=== PATIENT | female | born 1950 | race African-American/Black ===

== ENCOUNTER 2023-09-14 14:49 | Emergency (ER) | payer OTHER, SELFPAY ==
[2023-09-14 14:51] VITALS: BP 116/91
[2023-09-14 15:07] VITALS: BMI 26.4
--- NOTE | 2023-09-14 15:16 | ED.GENMED ---
History of Present Illness
General
Chief Complaint: Head Injury
Source: patient
Time Seen by Provider: 09/14/23 15:08
Travel History
Have you had any contact with someone who has COVID-19?: No
Do you have any symptoms of coronavirus? Fever > 100 degrees, chills, cough, shortness of breath, sore throat, loss of taste or smell, muscle aches, or headache?: No
History of Present Illness
History of Present Illness:
72-year-old female with no significant past medical history presents to the emergency department for evaluation after she was at work when she was at recess with her student and was struck on the right side of the head with a ball that caused her to
fall to the ground and since the injury she has had persistent right-sided headache, nausea, phonophobia and generally feeling unwell. Patient states due to the persistent nature of the symptoms she decided to come to the ER for further evaluation.
She denies any loss of consciousness, vomiting, visual disturbances, focal weakness or numbness or any other physical concerns. She denies any use of anticoagulants. Has been taking Tylenol intermittently for relief but states she does not get
very much relief with this. Denies any previous history of head injury.
Past History
Past History
ED Past Medical History: Hypothyroidism
ED Past Surgical History: Cholecystectomy, , Gynecological (Partial hysterectomy) and Orthopedic (Right foot surgery)
Social History
Tobacco: Non-smoker
Alcohol: None
Drug: None
Personal: Single
Living: with family
Review of Systems
Review of Systems
All Other Systems: ROS reviewed and negative except as documented in HPI and ROS
Phy Exam
Physical Exam
Physical Exam:
GENERAL: Alert , in no apparent distress
EYE: conjunctiva clear, PERRL, EOMI
Head: Normocephalic atraumatic
NECK: Supple, no midline tenderness
ENT: mmm. Right tympanic membrane visualized, clear, cone of light visualized, no perforations. Left TM visualized slightly but unable to see the full TM due to some cerumen
LUNGS: no acute respiratory distress
NEUROLOGICAL: Alert and oriented, ambulates with steady gait,
SKIN: Warm and dry, skin intact.
MUSCULOSKELETAL: well perfused.
PSYCH: Normal and appropriate interaction.
Scores
Heart Failure Risk
Heart Failure Risk Score: Not Applicable
Heart Score for Chest Pain Patients
STEMI patient?: Not applicable
Withdrawal Assessment of Alcohol
Withdrawal Assessment Completed?: Not applicable
Course
Orders/Labs/Results
Orders:
Orders
09/14/23 15:16
CT Head W/o Iv Contrast Urgent
Comment:
Reason For Exam: head injury, 1 week headache
Ibuprofen [Motrin] 600 mg PO NOW STA
Vital Signs
Initial and Last Documented VS:
Initial Vital Signs
Temp Pulse Resp BP Pulse Ox
98.7 F 68 18 116/91 99
09/14/23 14:51 09/14/23 14:51 09/14/23 14:51 09/14/23 14:51 09/14/23 14:51
Last Documented Vital Signs
Temp Pulse Resp BP Pulse Ox
98.7 F 68 18 116/91 99
09/14/23 14:51 09/14/23 14:51 09/14/23 14:51 09/14/23 14:51 09/14/23 14:51
MDM/Problems Addressed
Differential Diagnosis Includes:
Concussion, based off mechanism I have minimal concern for intracranial bleeding or calvarial fracture, tympanic membrane rupture, overall I do not have concern for giant cell arteritis given symptoms only started after patient had head injury.
MDM/Problems Addressed:
72-year-old female presenting to the emergency department status post right-sided head injury after getting struck with some type of the ball this past , the injury did not patient to the ground however she denies any loss consciousness.
Due to the duration of symptoms combined with the persistent nature of patient's headache will obtain a CT scan to further evaluate. Will also order Motrin for headache relief. Reassessment following.
*Radiology
Radiology exam reviewed: radiology read reviewed
*Pulse Oximetry
Patient hypoxic: no
*Critical Care Note
Total Time (30-74mins, 75-104mins- exclusive of procedures): Not Applicable
Patient Management
Escalation/DeEscalation of care consider admission/obs:
Patient's head CT without any acute pathologies. Discussed these findings with the patient as well as recommendation for outpatient follow-up with primary care physician and neurology/concussion specialist if symptoms persist. Aware of return
precautions but otherwise stable for discharge home.
ED Attending Note
-
Portions of this chart may have been created with voice recognition software.� Occasional wrong word or��sound alike� substitutions may have occurred due to the inherent limitations of voice recognition software.
Discharge Plan
Departure
Patient Disposition: Home (Routine Discharge)
Date of Disposition: 09/14/23
Time of Disposition: 16:13
Patient with high blood pressure during this ER visit?: No
Discharge Problem:
Concussion
Instructions: Concussion, Adult (DC)
Prescriptions:
No Action
naproxen 500 mg tablet,delayed release (DR/EC)
500 mg PO BID Qty: 10 0RF
Referrals:
UNKNOWN - PT DOES,NOT KNOW [Family Provider] -
Interventions
Interventions:
*Risk Screen - Suicide Last Done: 09/14/23 15:07
*General Assessment Last Done: 09/14/23 15:07
*Neglect/Abuse Screening Last Done: 09/14/23 15:07
ED- Fall Risk Assessment Last Done: 09/14/23 15:07
*ED COVID-19 Vaccine History Last Done: 09/14/23 15:07
*Nursing Disposition Last Done: 09/14/23 16:16
ED- Neurological Assessment Last Done: 09/14/23 15:07
ED-Skin Assessment Last Done: 09/14/23 15:07
Discharge Date and Time
Discharge Date/Time: 09/14/23 16:16
== END 2023-09-14 16:16 | disposition home or self-care (01) ==
LOC: EMR 14:49
PROVIDERS: EMERGENCY PHYSICIAN Student in an Organized Health Care Education/Training Program
DX: S06.0X0A Concussion without loss of consciousness, initial encounter (principal); W21.00XA Struck by hit or thrown ball, unspecified type, initial encounter; Y99.0 Civilian activity done for income or pay
CPT/HCPCS: 99284; 70450

== ENCOUNTER 2023-09-27 08:03 | Emergency (ER) | payer OTHER, SELFPAY ==
[2023-09-27 08:13] VITALS: BP 168/85
--- NOTE | 2023-09-27 08:46 | ED.GENMED ---
History of Present Illness
General
Chief Complaint: Head Injury
Source: patient
Exam Limitations: none
Time Seen by Provider: 09/27/23 08:33
Travel History
Have you had any contact with someone who has COVID-19?: No
Do you have any symptoms of coronavirus? Fever > 100 degrees, chills, cough, shortness of breath, sore throat, loss of taste or smell, muscle aches, or headache?: No
History of Present Illness
History of Present Illness:
72-year-old female hit with a ball to the right side of the head by 8 and 9-year-old approximately September 09. No LOC. Caused a whiplash injury and fell to the ground. Ongoing right-sided headache some dizziness lightheadedness. Some ongoing
right neck pain. Initial CT negative.
Past History
Past History
ED Past Medical History: Hypothyroidism
ED Past Surgical History: Cholecystectomy, , Gynecological (Partial hysterectomy) and Orthopedic (Right foot surgery)
Social History
Tobacco: Non-smoker
Alcohol: None
Drug: None
Personal: Single
Living: with family
Review of Systems
Review of Systems
All Other Systems: Not applicable
Constitutional: Denies fever
Neurological: Reports dizzy and headache; Denies weakness or numbness
Phy Exam
Physical Exam
Physical Exam:
GENERAL: Alert and oriented in no apparent distress. No scalp hematoma or open wound. Mild tenderness to the right scalp
EYE: Orbits normal.
NECK: Supple, nonlocalizing right paracervical tenderness. No carotid bruit
ENT: Pharynx without erythema
CARDIAC: Regular rate and rhythm without any obvious murmurs.
LUNGS: Clear breath sounds,normal
ABDOMEN: Soft, without focal tenderness or distention
NEUROLOGICAL: Alert and oriented , cranial nerves II through XII intact. Speech normal. Gait witnessed and slightly slow but normal. No drift.
SKIN: Warm and dry, no rash or lesion, no discoloration, skin intact.
MUSCULOSKELETAL: No edema,no deformity.Good color
PSYCH: Normal and appropriate interaction.
Course
Orders/Labs/Results
Orders:
Orders
09/27/23 08:45
CT Head W/o Iv Contrast Urgent
Comment:
Reason For Exam: Persistent right-sided headache
CT Neck Angio W/wo Iv Contrast Urgent
Comment:
Reason For Exam: Persistent right-sided headache/right neck pain.
IV Insert/Care/Rem.- Treatment PRN
0.9% Sodium Chloride 500 ml [Nss] 500 ml IV BOLUS
09/27/23 09:14
Basic Metabolic Panel Urgent
Complete Blood Count/With Diff Urgent
09/27/23 11:57
Ketorolac [Toradol] 15 mg IV NOW STA
Abnormal Lab Results
09/27/23
09:14
Glucose 105 H mg/dl
(70-99)
09/27/23 09:14
09/27/23 09:14
Vital Signs
Initial and Last Documented VS:
Initial Vital Signs
Temp Pulse Resp BP Pulse Ox
98.0 F 92 16 168/85 98
09/27/23 08:13 09/27/23 08:13 09/27/23 08:13 09/27/23 08:13 09/27/23 08:13
Last Documented Vital Signs
Temp Pulse Resp BP Pulse Ox
98.0 F 92 16 168/85 98
09/27/23 08:13 09/27/23 08:13 09/27/23 08:13 09/27/23 08:13 09/27/23 08:13
MDM/Problems Addressed
Differential Diagnosis Includes:
Likely postconcussion issues. However with ongoing headache will get a repeat CT to rule out delayed bleed. Also with the neck pain CT angiography of the neck to rule out dissection. If this is all negative symptomatic treatment and follow-up
with neurology for postconcussion syndrome
*Radiology
Radiology exam reviewed: radiology read reviewed (Negative head CT. Negative CT angiography)
*Pulse Oximetry
Patient hypoxic: no
*Critical Care Note
Total Time (30-74mins, 75-104mins- exclusive of procedures): Not Applicable
Data Reviewed
Review of Other/Old Records Reveals: Labs, Radiology Studies and Other (ED chart)
Update Note
Update Note:
Workup unremarkable. Most consistent with postconcussion syndrome. For discharge to follow-up
ED Attending Note
-
Portions of this chart may have been created with voice recognition software.� Occasional wrong word or��sound alike� substitutions may have occurred due to the inherent limitations of voice recognition software.
Discharge Plan
Departure
Patient Disposition: Home (Routine Discharge)
Date of Disposition: 09/27/23
Time of Disposition: 11:58
Patient with high blood pressure during this ER visit?: Yes
Discharge Problem:
Postconcussion syndrome
Instructions: Concussion, Adult (DC), Head Injury in Adults (DC), BLOOD PRESSURE
Prescriptions:
New
naproxen [Naprosyn] 500 mg tablet
500 mg PO BID PRN (Reason: Pain) Qty: 20 0RF
No Action
naproxen 500 mg tablet,delayed release (DR/EC)
500 mg PO BID Qty: 10 0RF
Referrals:
Alexandre Jamison MD [Active] - Next open appointment
PRIVATE,PHYSICIAN [Family Provider] -
Activity Restrictions/Additional Instructions:
You can try the Naprosyn instead of the meloxicam. Do not take both.
You can add Tylenol on top of this for pain
Meclizine for dizziness and disequilibrium
Follow-up with neurology.
Follow-up closely with your primary physician
Interventions
Interventions:
*Risk Screen - Suicide Last Done: 09/27/23 08:38
*General Assessment Last Done: 09/27/23 08:38
*Neglect/Abuse Screening Last Done: 09/27/23 08:38
ED- Fall Risk Assessment Last Done: 09/27/23 08:38
*ED COVID-19 Vaccine History Last Done: 09/27/23 08:13
*Nursing Disposition Last Done: 09/27/23 12:15
ED- Neurological Assessment Last Done: 09/27/23 08:38
ED-Skin Assessment Last Done: 09/27/23 08:38
Discharge Date and Time
Discharge Date/Time: 09/27/23 12:15
[2023-09-27] MEDS: NSS 500 IV (09:14)
[2023-09-27 09:15] VITALS: BMI 32.3
[2023-09-27 09:33] LABS: % Basophils 1.1 % (0-2); % Eosinophils 0.9 % (0-6); % Immature Granulocytes 0.2 % (0-0.5); % Lymphocytes 43.8 % (20.5-51.1); % Monocytes 6.9 % (1.7-9.3); % Neutrophils 47.1 % (42.2-75.2); Absolute Basophils 0.1 10^3/uL (0-0.2); Absolute Eosinophils 0.1 10^3/uL (0-0.7); Absolute Lymphocytes 2.5 10^3/uL (1.2-3.4); Absolute Monocytes 0.4 10^3/uL (0.1-0.6); Absolute Neutrophils 2.7 10^3/uL (1.4-6.5); Hematocrit 39.7 % (37.0-47.0); Hemoglobin 13.5 g/dL (12.0-16.0); Mean Corpuscular Hgb 29.3 pg (27.0-31.0); Mean Corpuscular Volume 86.3 fL (81.0-99.0); Mean Platelet Volume 9.9 fL (7.4-10.4); Nucleated Red Blood Cells % 0 %; Platelet Count 256 10^3/uL (130-400); Red Cell Dist. Width 11.9 % (11.5-14.5); White Blood Cell Count 5.7 10^3/uL (4.8-10.8)
[2023-09-27 09:44] LABS: Blood Urea Nitrogen 7 mg/dl (7-17); Calcium 9.8 mg/dl (8.4-10.2); Carbon Dioxide 30 mmol/L (22-30); Chloride 98 mmol/L (98-107); Estimated Creatinine Clearance 67 ml/min; Glucose 105 mg/dl (70-99); Potassium 3.9 mmol/L (3.5-5.1); Sodium 135 mmol/L (135-145); eGFR > 60.00
[2023-09-27] MEDS: TORADOL 15 MG IV (12:07)
== END 2023-09-27 12:15 | disposition home or self-care (01) ==
LOC: EMR 08:03
PROVIDERS: EMERGENCY PHYSICIAN Emergency Medicine
DX: F07.81 Postconcussional syndrome (principal); W22.8XXA Striking against or struck by other objects, initial encounter; R03.0 Elevated blood-pressure reading, without diagnosis of hypertension; Y99.0 Civilian activity done for income or pay
CPT/HCPCS: 99284; 96374; 96361 ×2; 70450; 70498; 80048; 85025; Q9967

== ENCOUNTER 2024-02-14 14:01 | Emergency (ER) | payer OTHER, SELFPAY ==
[2024-02-14 14:03] VITALS: BP 133/65
--- NOTE | 2024-02-14 15:11 | ED.GENMED ---
History of Present Illness
General
Chief Complaint: Anxiety
Source: patient and family
Exam Limitations: none
Time Seen by Provider: 02/14/24 14:44
Nursing documentation reviewed up to this point in time: agreed with
History of Present Illness
History of Present Illness:
Patient is a 73-year-old female with history of schizophrenia brought by son. Son reports he normally lives in [place] however is concerned about his mom because she seems like her anxiety is getting worse. She does live alone and is afraid to leave
her house. He reports has a history of paranoid schizophrenia. She is on Zyprexa. In addition to that she is on lisinopril and levothyroxine. She reports she is followed by Dr. Husain psychiatry at [facility] and her next
appointment is February 24. She is awake alert. She does feel anxious about certain things. Son reports there have been some family issues recently. She denies any suicidal homicidal thoughts.
Past History
Past History
ED Past Medical History: Hypothyroidism
ED Past Surgical History: Cholecystectomy, , Gynecological (Partial hysterectomy) and Orthopedic (Right foot surgery)
Social History
Tobacco: Non-smoker
Alcohol: None
Drug: None
Personal: Single
Living: with family
Review of Systems
Review of Systems
Allergies reviewed?: Yes
All Other Systems: ROS reviewed and negative except as documented in HPI and ROS
Constitutional: Reports no symptoms; Denies fever
Respiratory: Reports no symptoms
Cardiac: Reports no symptoms
ABD/GI: Reports no symptoms
Skin: Reports no symptoms
Neurological: Reports no symptoms
Psychiatric: Reports anxiety; Denies suicidal or hallucinations
Phy Exam
General Physical Exam
General Presentation: no apparent distress
General age: appears stated age
General Skin: warm and dry
General Habitus: normal
General Mental: alert
General Hydration: appears well hydrated
Cardiovascular Exam
Cardiovascular Exam: regular rate/rhythm, no murmur and normal peripheral pulses
Pulmonary Exam
Pulmonary Exam: lungs clear and no respiratory distress
Neurological Exam
Neurological Exam: alert and oriented x3
Musculoskeletal Exam
Musculoskeletal Exam: full ROM
Skin Exam
Skin Exam: normal color
Psychiatric Exam
Psychiatric Exam: normal mood/affect and agitated
Course
Orders/Labs/Results
Orders:
Orders
02/14/24 15:33
Crisis Consult Urgent
Reason for Consult: eval for anxiety
Vital Signs
Initial and Last Documented VS:
Initial Vital Signs
Temp Pulse Resp BP Pulse Ox
97.8 F 93 16 133/65 97
02/14/24 14:03 02/14/24 14:03 02/14/24 14:03 02/14/24 14:03 02/14/24 14:03
Last Documented Vital Signs
Temp Pulse Resp BP Pulse Ox
97.8 F 93 16 133/65 97
02/14/24 14:03 02/14/24 14:03 02/14/24 14:03 02/14/24 14:03 02/14/24 14:03
MDM/Problems Addressed
Differential Diagnosis Includes:
Not limited to anxiety
MDM/Problems Addressed:
Patient is a 73-year-old female brought by son for evaluation. Patient has anxiety and schizophrenia she is on Zyprexa and states she is taking her medication he is from out of town and is concerned that she is anxious and has a lot of family
issues. She is awake alert and oriented she is acting appropriate. He reports she is afraid to leave her house and she does admit to feeling like this. She denies or suicidal homicidal thoughts. She has no physical complaints and appears stable.
Vital signs stable. Will have patient evaluated by crisis
*Critical Care Note
Total Time (30-74mins, 75-104mins- exclusive of procedures): Not Applicable
ED Attending Note
-
Portions of this chart may have been created with voice recognition software.� Occasional wrong word or��sound alike� substitutions may have occurred due to the inherent limitations of voice recognition software.
Discharge Plan
Departure
Patient Disposition: [facility]
Date of Disposition: 02/14/24
Time of Disposition: 15:56
Patient with high blood pressure during this ER visit?: Yes
Condition: Fair
Covid-19: Not Applicable
Discharge Problem:
Anxiety
Instructions: Anxiety, Adult (DC), BLOOD PRESSURE
Prescriptions:
No Action
naproxen 500 mg tablet,delayed release (DR/EC)
500 mg PO BID Qty: 10 0RF
naproxen [Naprosyn] 500 mg tablet
500 mg PO BID PRN (Reason: Pain) Qty: 20 0RF
Referrals:
Modesto Sandhu, [Family Provider] -
Activity Restrictions/Additional Instructions:
follow up with David joyner and DR Husain.
Interventions
Interventions:
ED-Psychological Assessment Last Done: 02/14/24 15:20
Discharge Date and Time
Print Language: LEBANESE
== END 2024-02-14 16:07 ==
LOC: EMR 14:01
PROVIDERS: EMERGENCY PHYSICIAN Student in an Organized Health Care Education/Training Program; FAMILY PHYSICIAN Family Medicine
DX: F41.9 Anxiety disorder, unspecified (principal); F20.0 Paranoid schizophrenia; E03.9 Hypothyroidism, unspecified
CPT/HCPCS: 99282

== ENCOUNTER 2024-03-10 11:19 | Emergency (ER) | payer OTHER, SELFPAY ==
[2024-03-10 11:33] VITALS: BP 119/67
[2024-03-10 13:49] LABS: % Basophils 0.6 % (0-2); % Eosinophils 0.5 % (0-6); % Immature Granulocytes 0.5 % (0-0.5); % Lymphocytes 20.6 % (20.5-51.1); % Monocytes 4.5 % (1.7-9.3); % Neutrophils 73.3 % (42.2-75.2); Absolute Basophils 0.1 10^3/uL (0-0.2); Absolute Eosinophils 0.1 10^3/uL (0-0.7); Absolute Immature Granulocytes 0.1 10^3/uL (0-0.05); Absolute Lymphocytes 2.3 10^3/uL (1.2-3.4); Absolute Monocytes 0.5 10^3/uL (0.1-0.6); Hematocrit 37.8 % (37.0-47.0); Hemoglobin 12.6 g/dL (12.0-16.0); Mean Corp Hgb Conc. 33.3 g/dL (33.0-37.0); Mean Corpuscular Hgb 29.7 pg (27.0-31.0); Mean Corpuscular Volume 89.2 fL (81.0-99.0); Mean Platelet Volume 9.9 fL (7.4-10.4); Nucleated Red Blood Cells % 0 %; Platelet Count 351 10^3/uL (130-400); Red Blood Cell Count 4.24 10^6/uL (4.20-5.40); Red Cell Dist. Width 12.5 % (11.5-14.5); White Blood Cell Count 10.9 10^3/uL (4.8-10.8)
[2024-03-10 14:00] LABS: ALT (SGPT) 12 U/L (0-35); AST (SGOT) 25 U/L (14-36); Albumin 4.4 g/dl (3.5-5.0); Alkaline Phosphatase 79 U/L (38-126); Blood Urea Nitrogen 9 mg/dl (7-17); Calcium 9.9 mg/dl (8.4-10.2); Carbon Dioxide 31 mmol/L (22-30); Chloride 105 mmol/L (98-107); Glucose 146 mg/dl (70-99); Potassium 3.7 mmol/L (3.5-5.1); Sodium 142 mmol/L (135-145); Total Bilirubin 1.2 mg/dl (0.2-1.3); Total Protein 7.1 g/dl (6.3-8.2); eGFR > 60.00
--- NOTE | 2024-03-10 14:32 | ED.GENMED ---
History of Present Illness
General
Chief Complaint: Anxiety
Source: patient and family
Exam Limitations: none
Time Seen by Provider: 03/10/24 12:24
Nursing documentation reviewed up to this point in time: agreed with
History of Present Illness
History of Present Illness:
pt is a 73 y/o F with ho anxiety/paranoid schizophrenia
followed by [facility] josiane aldrich
has had a few months f worsening anxiety and paranoia
regarding her apartment, she has a delusion she will be kicked out and her son who si with her now is worried about her and also got a call from their son who is out of town in [place] who has received phone calls from her and she is quite paranoid.
This prompted a visit i January about a month ago for the same symptoms. She was seen by crisis and ultimately discharged. Patient saw Dr. Aldrich a week ago who upped her Zyprexa to 10 mg. She says she has been compliant with that and she has
been able to eat sleep but she does not eat very well according to her son. She has not had any auditory or visual hallucinations. She is not having any persecutory thoughts, suicidal thoughts, homicidal thoughts. She has not had any medical
complaints, headache, fever, chills, urinary symptoms, vomiting, cp, sob
Past History
Past History
ED Past Medical History: Hypothyroidism
ED Past Surgical History: Cholecystectomy, , Gynecological (Partial hysterectomy) and Orthopedic (Right foot surgery)
Social History
Tobacco: Non-smoker
Alcohol: None
Drug: None
Personal: Single
Living: with family
Review of Systems
Review of Systems
Allergies reviewed?: Yes
All Other Systems: Not applicable
Phy Exam
Physical Exam
Physical Exam:
GENERAL: Alert , in no apparent distress, well-kept, appropriate, not responding to internal stimuli, seems hydrated
EYE: pupils equal and reactive
NECK: Supple
ENT: o/p clr, mmm.
CARDIAC: Regular rate and rhythm .
LUNGS: Clear breath sounds bilaterally, no acute respiratory distress, no wheezes/rales/rhonchi
ABDOMEN: Soft, without focal tenderness, no r/g, no cvat, normal bowel sounds
NEUROLOGICAL: Alert and oriented, no focal neuro deficits
SKIN: Warm and dry, skin intact.
MUSCULOSKELETAL: No edema, well perfused. neg milton's sign
PSYCH: Normal and appropriate interaction. No severe anxiety witnessed, patient has no suicidal ideations homicidal ideations, she says she gets anxious at times but she does not appear anxious
Course
Orders/Labs/Results
Orders:
Orders
03/10/24 13:31
Crisis Consult Urgent
Reason for Consult: anxiety, paranoia
03/10/24 13:36
Complete Blood Count/With Diff Urgent
Comprehensive Metabolic Panel Urgent
03/10/24 14:41
Urinalysis Reflex To Culture Urgent
Date Specimen was Collected: 03/10/24
Time Specimen was Collected: 14:41
Urine Microscopic Reflex Cult Urgent
Urine Culture Urgent
LAINA Source: U
Specimen Description:
Date Specimen was Collected: 03/10/24
Time Specimen was Collected: 14:41
Abnormal Lab Results
03/10/24 03/10/24
13:36 14:41
WBC 10.9 H 10^3/uL
(4.8-10.8)
Abs Immat Gran (auto) 0.1 H 10^3/uL
(0-0.05)
Absolute Neuts (auto) 8.0 H 10^3/uL
(1.4-6.5)
Carbon Dioxide 31 H mmol/L
(22-30)
Glucose 146 H mg/dl
(70-99)
Leukocyte Esterase Rfl 1+ A
(Negative)
03/10/24 13:36
03/10/24 13:36
Vital Signs
Initial and Last Documented VS:
Initial Vital Signs
Temp Pulse Resp BP Pulse Ox
98.1 F 91 16 119/67 99
03/10/24 11:33 03/10/24 11:33 03/10/24 11:33 03/10/24 11:33 03/10/24 11:33
Last Documented Vital Signs
Temp Pulse Resp BP Pulse Ox
98.1 F 91 16 119/67 99
03/10/24 11:33 03/10/24 11:33 03/10/24 11:33 03/10/24 11:33 03/10/24 11:33
MDM/Problems Addressed
Differential Diagnosis Includes:
paranoia, anxiety, uti,
MDM/Problems Addressed:
73 y/o F with h/o paranoid schiz
anxiety
here with anxiety and paranoid thoughts more than usual despite inc in medication last week
plugged into outpatient but son thinks she needs more intensive outpatient services
pt doesn't wish to go inpatient
he feels she is safe at home
sheis christopher for safety, not responding to internal stimuli
screening labs unremarkable
ua neg
crisis saw patient and gave resources
d/c home
*Critical Care Note
Total Time (30-74mins, 75-104mins- exclusive of procedures): Not Applicable
ED Attending Note
-
Portions of this chart may have been created with voice recognition software.� Occasional wrong word or��sound alike� substitutions may have occurred due to the inherent limitations of voice recognition software.
Discharge Plan
Departure
Patient Disposition: Home (Routine Discharge)
Date of Disposition: 03/10/24
Time of Disposition: 15:23
Patient with high blood pressure during this ER visit?: No
Condition: Fair
Covid-19: Not Applicable
Discharge Problem:
Paranoia, Anxiety
Prescriptions:
No Action
naproxen 500 mg tablet,delayed release (DR/EC)
500 mg PO BID Qty: 10 0RF
naproxen [Naprosyn] 500 mg tablet
500 mg PO BID PRN (Reason: Pain) Qty: 20 0RF
Referrals:
Modesto Sandhu DO [Family Provider] - Follow up in 2-3 days
Activity Restrictions/Additional Instructions:
You were given outpatient resources for following up for help with your mental health. You should in the meantime continue your Zyprexa. Return for any serious concerns like suicidal thoughts, hallucinations, fevers or chills, headaches, confusion
etc.
Interventions
Interventions:
*Risk Screen - Suicide Last Done: 03/10/24 11:33
*General Assessment Last Done: 03/10/24 11:33
*Neglect/Abuse Screening Last Done: 03/10/24 11:33
Discharge Date and Time
Print Language: JORDANIAN
[2024-03-10 15:00] VITALS: BP 112/66
[2024-03-10 15:01] LABS: Urine Albumin Trace (Neg - Trace); Urine Bilirubin Negative (Negative); Urine Character Clear (Clear); Urine Color Yellow; Urine Glucose Negative (Negative); Urine Ketone Negative (Negative); Urine Leukocyte 1+ (Negative); Urine Nitrite Negative (Negative); Urine Occult Blood Negative (Negative); Urine Specific Gravity 1.015 (<1.030); Urine Urobilinogen 1+ (Neg - 1+)
[2024-03-10 15:20] LABS: Urine Mucus Moderate; Urine Squamous Cell 0-2 /LPF (Few); Urine Urothelial Cell 0-2 /LPF (FEW)
[2024-03-10 15:21] LABS: Urine Red Blood Cell 0-2 /HPF (0-2)
== END 2024-03-10 15:33 | disposition home or self-care (01) ==
LOC: EMR 11:19
PROVIDERS: Physician Assistant; EMERGENCY PHYSICIAN Emergency Medicine; FAMILY PHYSICIAN Family Medicine
DX: F22 Delusional disorders (principal); F41.9 Anxiety disorder, unspecified; F20.0 Paranoid schizophrenia; E03.9 Hypothyroidism, unspecified; I10 Essential (primary) hypertension; E78.5 Hyperlipidemia, unspecified; F32.A Depression, unspecified; Z86.16 Personal history of COVID-19; Z90.49 Acquired absence of other specified parts of digestive tract; Z91.018 Allergy to other foods; Z91.048 Other nonmedicinal substance allergy status
CPT/HCPCS: 99283; 80053; 81003; 81015; 85025; 87086

== ENCOUNTER → 2024-05-08 12:12 | Outpatient (REF) | payer OTHER, SELFPAY | LOC: RAD 12:12 | PROVIDERS: ATTENDING PHYSICIAN Nurse Practitioner Family; FAMILY PHYSICIAN Family Medicine | DX: K62.5 Hemorrhage of anus and rectum (principal) | CPT/HCPCS: 74177; Q9967 ==

== ENCOUNTER → 2024-08-04 09:48 | Outpatient (REF) | payer OTHER, SELFPAY | LOC: HWWDC 09:48 | PROVIDERS: ATTENDING PHYSICIAN Family Medicine; FAMILY PHYSICIAN Family Medicine | DX: Z12.31 Encounter for screening mammogram for malignant neoplasm of breast (principal) | CPT/HCPCS: 77063; 77067 ==

== ENCOUNTER → 2024-08-10 09:40 | Outpatient (REF) | payer OTHER, SELFPAY | LOC: WDC 09:40 | PROVIDERS: ATTENDING PHYSICIAN Family Medicine | DX: R92.8 Other abnormal and inconclusive findings on diagnostic imaging of breast (principal) | CPT/HCPCS: 76642 ==

== ENCOUNTER → 2024-10-03 13:30 | Outpatient (REF) | payer OTHER, SELFPAY | LOC: EMG 13:30 | PROVIDERS: ATTENDING PHYSICIAN Family Medicine | DX: R20.0 Anesthesia of skin (principal); R20.2 Paresthesia of skin | CPT/HCPCS: 95886; 95910 ==

== ENCOUNTER 2024-10-25 10:51 | Outpatient (RCR) | payer OTHER, SELFPAY | END 2024-10-25 23:59 | disposition home or self-care (01) | LOC: RPT 10:51 | PROVIDERS: ATTENDING PHYSICIAN Family Medicine | DX: F07.81 Postconcussional syndrome (principal); M54.2 Cervicalgia; Z73.6 Limitation of activities due to disability; G89.29 Other chronic pain; R20.2 Paresthesia of skin; W21.00XD Struck by hit or thrown ball, unspecified type, subsequent encounter; Y93.89 Activity, other specified; Y92.89 Other specified places as the place of occurrence of the external cause; Y99.0 Civilian activity done for income or pay | CPT/HCPCS: 97010; 97110; 97162 ==

== ENCOUNTER 2024-11-09 13:03 | Outpatient (RCR) | payer OTHER, SELFPAY | END 2024-11-09 23:59 | disposition home or self-care (01) | LOC: RPT 13:03 | PROVIDERS: ATTENDING PHYSICIAN Family Medicine | DX: M54.2 Cervicalgia (principal); F07.81 Postconcussional syndrome; Z73.6 Limitation of activities due to disability; G89.29 Other chronic pain; R20.2 Paresthesia of skin; W21.00XD Struck by hit or thrown ball, unspecified type, subsequent encounter; Y93.89 Activity, other specified; Y92.89 Other specified places as the place of occurrence of the external cause; Y99.0 Civilian activity done for income or pay | CPT/HCPCS: 97010; 97110 ==

== ENCOUNTER 2024-11-15 06:22 | Day surgery (SDC) | payer OTHER, SELFPAY | END 2024-11-15 10:48 | disposition home or self-care (01) | LOC: GI 06:22 | PROVIDERS: ATTENDING PHYSICIAN Internal Medicine Gastroenterology | DX: Z12.11 Encounter for screening for malignant neoplasm of colon (principal); D12.0 Benign neoplasm of cecum; Z86.0100 Personal history of colon polyps, unspecified | CPT/HCPCS: 45385; 88305 ==

== ENCOUNTER 2024-11-30 15:00 | Outpatient (RCR) | payer OTHER, SELFPAY | END 2024-11-30 23:59 | disposition home or self-care (01) | LOC: RPT 15:00 | PROVIDERS: ATTENDING PHYSICIAN Family Medicine | DX: M54.2 Cervicalgia (principal); F07.81 Postconcussional syndrome; Z73.6 Limitation of activities due to disability; G89.29 Other chronic pain; R20.2 Paresthesia of skin; W21.00XD Struck by hit or thrown ball, unspecified type, subsequent encounter; Y93.89 Activity, other specified; Y92.89 Other specified places as the place of occurrence of the external cause; Y99.0 Civilian activity done for income or pay | CPT/HCPCS: 97010; 97110 ==

== ENCOUNTER 2025-01-02 12:30 | Outpatient (RCR) | payer OTHER, SELFPAY | END 2025-01-02 23:59 | disposition home or self-care (01) | LOC: RPT 12:30 | PROVIDERS: ATTENDING PHYSICIAN Family Medicine | DX: M54.2 Cervicalgia (principal); F07.81 Postconcussional syndrome; Z73.6 Limitation of activities due to disability; G89.29 Other chronic pain; R20.2 Paresthesia of skin; W21.00XD Struck by hit or thrown ball, unspecified type, subsequent encounter; Y93.89 Activity, other specified; Y92.89 Other specified places as the place of occurrence of the external cause; Y99.0 Civilian activity done for income or pay | CPT/HCPCS: 97110 ==

== ENCOUNTER 2025-01-26 15:59 | Emergency (ER) | payer OTHER, SELFPAY ==
[2025-01-26 16:02] VITALS: BP 150/70
[2025-01-26 16:37] LABS: % Basophils 0.3 % (0-2); % Immature Granulocytes 0.9 % (0-0.5); % Lymphocytes 15.1 % (20.5-51.1); % Monocytes 1.9 % (1.7-9.3); % Neutrophils 81.8 % (42.2-75.2); Absolute Immature Granulocytes 0.1 10^3/uL (0-0.05); Absolute Lymphocytes 1.6 10^3/uL (1.2-3.4); Absolute Monocytes 0.2 10^3/uL (0.1-0.6); Absolute Neutrophils 8.5 10^3/uL (1.4-6.5); Hematocrit 35.7 % (37.0-47.0); Hemoglobin 11.7 g/dL (12.0-16.0); Mean Corp Hgb Conc. 32.8 g/dL (33.0-37.0); Mean Corpuscular Hgb 29.8 pg (27.0-31.0); Mean Corpuscular Volume 91.1 fL (81.0-99.0); Mean Platelet Volume 9.9 fL (7.4-10.4); Nucleated Red Blood Cells % 0 %; Platelet Count 252 10^3/uL (130-400); Red Blood Cell Count 3.92 10^6/uL (4.20-5.40); Red Cell Dist. Width 12.2 % (11.5-14.5); White Blood Cell Count 10.3 10^3/uL (4.8-10.8)
[2025-01-26 16:50] LABS: ALT (SGPT) 22 U/L (0-35); AST (SGOT) 24 U/L (14-36); Albumin 4.6 g/dl (3.5-5.0); Alkaline Phosphatase 91 U/L (38-126); Blood Urea Nitrogen 14 mg/dl (7-17); Calcium 9.6 mg/dl (8.4-10.2); Carbon Dioxide 26 mmol/L (22-30); Chloride 108 mmol/L (98-107); Glucose 177 mg/dl (70-99); Lipase 49 U/L (23-300); Potassium 4.2 mmol/L (3.5-5.1); Sodium 144 mmol/L (135-145); Total Bilirubin 0.8 mg/dl (0.2-1.3); Total Protein 7.3 g/dl (6.3-8.2); eGFR 59.12
--- NOTE | 2025-01-26 18:21 | ED.GENMED ---
History of Present Illness
General
Chief Complaint: Abdominal Pain
Source: patient
Exam Limitations: none
Time Seen by Provider: 01/26/25 17:53
Nursing documentation reviewed up to this point in time: agreed with
History of Present Illness
History of Present Illness:
74-year-old female presents for pain in her left side for 3 to 4 days. She states moving makes it worse and Tylenol helps a little. She has been moving her bowels as usual every 2 to 3 days and her last bowel movement was 2 days ago. She denies
UTI symptoms. She denies fever or chills. Appetite has been good. She denies chest pain or trouble breathing. She denies abdominal pain and points to the left lateral side to indicate where her pain is.
Past History
Past History
ED Past Medical History: HTN and Hypercholesterolemia
ED Past Surgical History: Cholecystectomy, , Gynecological (Partial hysterectomy) and Orthopedic (Right foot surgery)
Social History
Tobacco: Non-smoker
Alcohol: None
Drug: None
Personal: Single
Living: with family
Review of Systems
Review of Systems
Allergies reviewed?: Yes
All Other Systems: ROS reviewed and negative except as documented in HPI and ROS
Constitutional: Denies fever
Respiratory: Denies trouble breathing
Cardiac: Denies chest pain
ABD/GI: Denies abdominal pain, nausea, vomiting or diarrhea
Musculoskeletal: Reports other (pain left side just below ribcage); Denies neck pain or back pain
Skin: Reports no symptoms
Neurological: Reports no symptoms
Phy Exam
Physical Exam
Physical Exam:
GENERAL: No acute distress. A&Ox3.
CONSTITUTIONAL: Afebrile.
EYES: clear, conjunctivae normal
ENMT: moist mucus membranes, Pharynx nl
RESPIRATORY: Regular respirations, nonlabored, lungs clear.
CARDIOVASCULAR: Regular rate and rhythm, no murmurs, no rubs.
GI: Soft, nontender, normal BS. Unable to reproduce pain with deep palpation of the abdomen, percussion over the flank areas but complains of pain lateral left side while getting out of bed and when twisting [id number].
MUSCULOSKELETAL: Moves with ease. Well perfused.
SKIN: Warm, dry, normal
PSYCH: Normal mood and affect. Well kept, interactive and appropriate
NEUROLOGIC: Awake, alert and oriented. No focal neurological deficits
Course
Orders/Labs/Results
Orders:
Orders
01/26/25 16:06
Electrocardiogram (*1) Urgent
Reason for Study: Abdominal Pain
EKG- Treatment ONCE
01/26/25 16:14
Complete Blood Count/With Diff Urgent
Comprehensive Metabolic Panel Urgent
Lipase Urgent
01/26/25 18:31
CT Abd/pelvis W Iv Cont Urgent
Comment:
Reason For Exam: L side abd pain
Abnormal Lab Results
01/26/25
16:14
RBC 3.92 L 10^6/uL
(4.20-5.40)
Hgb 11.7 L g/dL
(12.0-16.0)
Hct 35.7 L %
(37.0-47.0)
MCHC 32.8 L g/dL
(33.0-37.0)
Abs Immat Gran (auto) 0.1 H 10^3/uL
(0-0.05)
Absolute Neuts (auto) 8.5 H 10^3/uL
(1.4-6.5)
Immature Gran % 0.9 H %
(0-0.5)
Neutrophils % 81.8 H %
(42.2-75.2)
Lymphocytes % 15.1 L %
(20.5-51.1)
Chloride 108 H mmol/L
(98-107)
Glucose 177 H mg/dl
(70-99)
01/26/25 16:14
01/26/25 16:14
Vital Signs
Initial and Last Documented VS:
Initial Vital Signs
Temp Pulse Resp BP Pulse Ox
98.7 F 89 16 150/70 100
01/26/25 16:02 01/26/25 16:02 01/26/25 16:02 01/26/25 16:02 01/26/25 16:02
Last Documented Vital Signs
Temp Pulse Resp BP Pulse Ox
98.7 F 89 16 150/70 100
01/26/25 16:02 01/26/25 16:02 01/26/25 16:02 01/26/25 16:02 01/26/25 18:24
MDM/Problems Addressed
Differential Diagnosis Includes:
Kidney stone, diverticulitis, muscular strain
MDM/Problems Addressed:
74-year-old female presents for pain in her left side for 3 to 4 days. She states moving makes it worse and Tylenol helps a little. She has been moving her bowels as usual every 2 to 3 days and her last bowel movement was 2 days ago. She denies
UTI symptoms. She denies fever or chills. Appetite has been good. She denies chest pain or trouble breathing. She denies abdominal pain and points to the left lateral side to indicate where her pain is.
CBC normal
CMP normal
3:45 PM:
CAT scan abdomen pelvis with IV contrast only radiology report read: No acute findings.
Copy of report given to patient
After explained negative workup, she tells me that she saw her PCP Dr. Bazan 2 days ago and he put her on a steroid taper for this pain.
I told her to follow-up with him in a week if she is no better. And that she may try Tylenol or ibuprofen
This is most likely musculoskeletal pain.
*Pulse Oximetry
SaO2: 100
Oxygen Mode of Delivery: Room air
Patient hypoxic: no
*EKG
EKG Intrepretation Date: 01/26/25
Heart Rate: 83
Rate: normal
Rhythm: sinus
[place]: normal axis
Interval: normal interval
QRS Pattern: normal QRS
Ischemia: no ischemia
*Critical Care Note
Total Time (30-74mins, 75-104mins- exclusive of procedures): Not Applicable
ED Attending Note
-
Portions of this chart may have been created with voice recognition software.� Occasional wrong word or��sound alike� substitutions may have occurred due to the inherent limitations of voice recognition software.
Discharge Plan
Departure
Patient Disposition: Home (Routine Discharge)
Date of Disposition: 01/26/25
Time of Disposition: 20:50
Patient with high blood pressure during this ER visit?: No
Condition: Good
Discharge Problem:
Left sided abdominal pain
Instructions: Musculoskeletal Pain
Prescriptions:
No Action
prednisone 10 mg Tablet
10 mg PO DIRECTED
Rx Instructions:
take 40mg daily for 3 days then 30mg daily for 3 day then 20mg daily for 3 days then 10mg daily for 3 days
lisinopril 20 mg Tablet
20 mg PO QPM
olanzapine 10 mg Tablet
10 mg PO HS
levothyroxine [Synthroid] 75 mcg Tablet
75 mcg PO DAILY
rosuvastatin [Crestor] 5 mg Tablet
5 mg PO DAILY
Referrals:
Modesto Sandhu DO [Family Provider, Family Practice] - Follow up in 5-7 days
Activity Restrictions/Additional Instructions:
As we discussed, nothing worrisome in your workup here today.
You may try ibuprofen 600 mg, with food, every 6 hours as needed for pain and see if that helps.
You may continue the prednisone taper to see if it helps
See your doctor next week if you are not much improved by then.
Interventions
Interventions:
*Risk Screen - Suicide Last Done: 01/26/25 16:02
*General Assessment Last Done: 01/26/25 18:00
*Neglect/Abuse Screening Last Done: 01/26/25 16:02
*ED- Fall Risk Assessment Last Done: 01/26/25 17:42
*Nursing Disposition Last Done: 01/26/25 21:11
LE-Ragzfn-Hxbguifqap Assessment Last Done: 01/26/25 17:42
Discharge Date and Time
Discharge Date/Time: 01/26/25 21:12
Print Language: PERSIAN
== END 2025-01-26 21:12 | disposition home or self-care (01) ==
LOC: EMR 15:59
PROVIDERS: Student in an Organized Health Care Education/Training Program; EMERGENCY PHYSICIAN Emergency Medicine; FAMILY PHYSICIAN Family Medicine
DX: R10.9 Unspecified abdominal pain (principal); I10 Essential (primary) hypertension; E78.00 Pure hypercholesterolemia, unspecified; Z90.49 Acquired absence of other specified parts of digestive tract
CPT/HCPCS: 99284; 74177; 80053; 83690; 85025; 93005; Q9967

== ENCOUNTER → 2025-03-26 17:10 | Outpatient (REF) | payer OTHER, SELFPAY | LOC: RAD 17:10 | PROVIDERS: ATTENDING PHYSICIAN Physician Assistant Medical | DX: M54.9 Dorsalgia, unspecified (principal) | CPT/HCPCS: 72052; 72072; 72110 ==

== ENCOUNTER → 2025-03-30 07:49 | Outpatient (REF) | payer OTHER, SELFPAY | LOC: HWRAD 07:49 | PROVIDERS: ATTENDING PHYSICIAN Obstetrics & Gynecology; FAMILY PHYSICIAN Family Medicine | DX: R10.2 Pelvic and perineal pain (principal) | CPT/HCPCS: 76830; 76856 ==

== ENCOUNTER → 2025-04-12 18:51 | Outpatient (REF) | payer OTHER, SELFPAY | LOC: MRI 18:51 | PROVIDERS: ATTENDING PHYSICIAN Physician Assistant Medical; FAMILY PHYSICIAN Family Medicine | DX: R10.32 Left lower quadrant pain (principal) | CPT/HCPCS: 72197; A9575 ==

== ENCOUNTER 2025-04-20 11:37 | Outpatient (RCR) | payer OTHER, SELFPAY | END 2025-04-20 23:59 | disposition home or self-care (01) | LOC: ROT 11:37 | PROVIDERS: ATTENDING PHYSICIAN Family Medicine | DX: G56.21 Lesion of ulnar nerve, right upper limb (principal); M79.641 Pain in right hand; Z73.6 Limitation of activities due to disability | CPT/HCPCS: 97018; 97110; 97166; 97535 ==

== ENCOUNTER → 2025-06-29 14:07 | Outpatient (REF) | payer OTHER, SELFPAY | LOC: HWRAD 14:07 | PROVIDERS: ATTENDING PHYSICIAN Physician Assistant Medical | DX: N28.1 Cyst of kidney, acquired (principal) | CPT/HCPCS: 76775 ==